=== PATIENT | female | born 1970 | race Caucasian/White ===

== ENCOUNTER 2017-02-14 21:44 | Emergency (ER) | payer SELFPAY, OTHER ==
[2017-02-14] MEDS ORDERED: Meclizine HCl 25 MG TAB ONE (22:35)
== END 2017-02-14 23:48 | disposition home or self-care (01) ==
LOC: ERS 21:44
DX: H81.13 Benign paroxysmal vertigo, bilateral (principal); E11.9 Type 2 diabetes mellitus without complications; I10 Essential (primary) hypertension; G43.909 Migraine, unspecified, not intractable, without status migrainosus; J45.909 Unspecified asthma, uncomplicated; F17.210 Nicotine dependence, cigarettes, uncomplicated
CPT/HCPCS: 93005

== ENCOUNTER 2017-05-25 11:00 | Outpatient (CLI) | payer SELFPAY | END 2017-05-25 11:01 | disposition home or self-care (01) | LOC: BICRAD 11:00 | DX: J18.9 Pneumonia, unspecified organism (principal); I51.7 Cardiomegaly | CPT/HCPCS: 71046 ==

== ENCOUNTER 2017-09-13 20:55 | Emergency (ER) | payer SELFPAY ==
--- NOTE | 2017-09-13 21:17 | RAD ---
PORTABLE CHEST: 09/13/2017 PROVIDED CLINICAL HISTORY: Dyspnea. COMPARISON: 04/04/2016 FINDINGS: The cardiac silhouette appears enlarged. Prominence of the pulmonary vasculature and pulmonary inter stitium. No focal consolidation or pneumothorax apparent. Blunting of each costophrenic angle may r eflect pleural effusions. IMPRESSION: Cardiomegaly and findings suggesting congestive failure with possible bilateral small pleural effusio ns. Followup is recommended. POS: ALPHONSO
[2017-09-13] MEDS ORDERED: predniSONE 20 MG TAB ONE (21:19)
[2017-09-13 22:03] LABS: #Basophils 0.1 thou/uL (0.0-0.2); #Eosinphils 0.3 thou/uL (0.0-0.7); #Lymphocytes 2.7 thou/uL (1.20-3.40); #Monocytes 0.9 thou/uL (0.11-0.59); #Neutrophils 9.1 thou/uL (1.40-6.50); %Basophils 0.4 % (0.0-1.0); %Eosinophils 2.3 % (0.0-10.0); %Lymphocytes 20.7 % (21.0-51.0); %Monocytes 7.1 % (0.0-10.0); %Neutrophils 69.5 % (42.0-75.0); Hemoglobin 13.4 g/dL (12.0-16.0); Mean Corpuscular HGB CONC 31.2 g/dL (32.0-36.0); Mean Corpuscular Hemoglobin 24.5 pg (27.0-31.0); Mean Corpuscular Volume 78.5 fl (81.0-99.0); Mean Platelet Volume 7.5 fL (7.4-10.4); Platelet Count 451 thou/uL (130-400); RBC Distribution Width 17.3 % (11.5-14.5); Red Blood Cell (RBC) Count 5.49 mill/uL (4.20-5.40); White Blood Cell (WBC) Count 13.1 thou/uL (4.8-10.8)
[2017-09-13 22:19] LABS: ALT (SGPT) 20 U/L (8-55); AST (SGOT) 16 U/L (5-34); Albumin 3.8 g/dL (3.5-5.0); Alkaline Phosphatase 153 U/L (40-150); Anion Gap 14 mmol/L (10-20); BUN (Urea Nitrogen) 13 mg/dL (7.0-18.7); Bilirubin, Total 0.4 mg/dL (0.2-1.2); Calc. Creatinine Clearance 0 mL/min (70-130); Calcium 9.6 mg/dL (7.8-10.44); Carbon Dioxide 28 mmol/L (22-29); Chloride 101 mmol/L (98-107); Estimated GFR-MDRD 70; Globulin 3.6 g/dL (2.4-3.5); Glucose 157 mg/dL (70-105); Protein, Total 7.4 g/dL (6.0-8.3); Sodium 139 mmol/L (136-145)
[2017-09-13 22:23] LABS: CKMB 2.3 ng/mL (0-6.6)
[2017-09-13] MEDS ORDERED: Albuterol Sulfate 2.5 mg/3 ml Neb ONE (22:33)
== END 2017-09-13 22:48 | disposition home or self-care (01) ==
LOC: ERS 20:55
DX: J44.1 Chronic obstructive pulmonary disease with (acute) exacerbation (principal); E11.9 Type 2 diabetes mellitus without complications; I10 Essential (primary) hypertension; F17.210 Nicotine dependence, cigarettes, uncomplicated; Z79.84 Long term (current) use of oral hypoglycemic drugs; Z79.899 Other long term (current) drug therapy
CPT/HCPCS: 71045; 80053; 82553; 83880; 84484; 85025; 93005; 94640; J7506; J7611; J7620

== ENCOUNTER 2017-10-09 22:48 | Emergency (ER) | payer SELFPAY ==
[2017-10-09] MEDS ORDERED: methylPREDNISolone Sod Succ/PF 125 MG/2 ML VIAL ONE (23:06)
[2017-10-09 23:21] LABS: #Basophils 0.1 thou/uL (0.0-0.2); #Eosinphils 0.3 thou/uL (0.0-0.7); #Lymphocytes 2.9 thou/uL (1.20-3.40); #Neutrophils 6.9 thou/uL (1.40-6.50); %Basophils 0.8 % (0.0-1.0); %Eosinophils 2.8 % (0.0-10.0); %Lymphocytes 26.2 % (21.0-51.0); %Monocytes 8.6 % (0.0-10.0); %Neutrophils 61.6 % (42.0-75.0); Hemoglobin 14.2 g/dL (12.0-16.0); Mean Corpuscular Hemoglobin 24.7 pg (27.0-31.0); Mean Platelet Volume 8.4 fL (7.4-10.4); Platelet Count 297 thou/uL (130-400); RBC Distribution Width 18.3 % (11.5-14.5); Red Blood Cell (RBC) Count 5.74 mill/uL (4.20-5.40); White Blood Cell (WBC) Count 11.2 thou/uL (4.8-10.8)
[2017-10-09] MEDS ORDERED: Amlodipine 5 MG TAB ONE (23:26)
[2017-10-09] MEDS ORDERED: Furosemide 40 MG TAB ONE (23:26)
[2017-10-09 23:41] LABS: Anion Gap 15 mmol/L (10-20); BUN (Urea Nitrogen) 14 mg/dL (7.0-18.7); Calc. Creatinine Clearance 0 mL/min (70-130); Calcium 9.6 mg/dL (7.8-10.44); Carbon Dioxide 28 mmol/L (22-29); Chloride 101 mmol/L (98-107); Estimated GFR-MDRD 74; Glucose 133 mg/dL (70-105); Potassium 4.2 mmol/L (3.5-5.1); Sodium 140 mmol/L (136-145)
--- NOTE | 2017-10-09 23:41 | RAD ---
RADIOGRAPH CHEST 1 VIEW: Date: 10/09/17 Time: 11:14 p.m. HISTORY: 47-year-old female with dyspnea and COPD. COMPARISON: 09/13/17 FINDINGS: Again demonstrated is the indistinctness of the right cardiac border, unchanged since 09/13/17, but ne w compared to 04/04/16. There is mild cardiomegaly. No pulmonary vascular engorgement or pulmonary e kim. Upper lobes are clear. No pneumothorax. No interval change overall compared to 09/13/17. Minimal blunting of the lateral costophrenic angles bilaterally. IMPRESSION: 1. Infiltrate versus atelectasis in the right middle lobe, unchanged since 09/13/17. 2. Mild cardiomegaly without pulmonary edema. 3. Questionable small bilateral pleural effusions versus pleural thickening. 4. No major interval change detected overall compared to 09/13/17. JANNA [] POS: ALPHONSO
[2017-10-09] MEDS ORDERED: Albuterol Sulfate 2.5 mg/3 ml Neb ONE (23:54)
== END 2017-10-10 00:19 | disposition home or self-care (01) ==
LOC: ERS 22:48
DX: J44.1 Chronic obstructive pulmonary disease with (acute) exacerbation (principal); E11.9 Type 2 diabetes mellitus without complications; I10 Essential (primary) hypertension; F17.210 Nicotine dependence, cigarettes, uncomplicated; Z79.84 Long term (current) use of oral hypoglycemic drugs; Z79.899 Other long term (current) drug therapy; Z71.6 Tobacco abuse counseling
CPT/HCPCS: 71045; 80048; 85025; 93005; 94640; 96374; 99406; J2930; J7611; J7620

== ENCOUNTER 2020-08-09 23:44 | Emergency (ER) | payer MEDICAID ==
[2020-08-10] MEDS ORDERED: Magnesium 2 GM/50 ML BAG (IN WATER) ONE (00:09)
[2020-08-10] MEDS ORDERED: methylPREDNISolone Sod Succ/PF 125 MG/2 ML VIAL ONE (00:09)
[2020-08-10 00:16] LABS: #Monocytes 0.7 thou/uL (0.11-0.59); #Neutrophils 12.3 thou/uL (1.40-6.50); %Basophils 0.1 % (0.0-1.0); %Eosinophils 0.2 % (0.0-10.0); %Monocytes 5.2 % (0.0-10.0); %Neutrophils 87.4 % (42.0-75.0); Hemoglobin 15.3 g/dL (12.0-16.0); Mean Corpuscular HGB CONC 31.8 g/dL (32.0-36.0); Mean Corpuscular Hemoglobin 30.3 pg (27.0-31.0); Mean Corpuscular Volume 95.1 fL (78.0-98.0); Mean Platelet Volume 8.6 fL (7.4-10.4); Platelet Count 351 thou/uL (130-400); RBC Distribution Width 14.2 % (11.5-14.5); Red Blood Cell (RBC) Count 5.06 mill/uL (4.20-5.40); White Blood Cell (WBC) Count 14.1 thou/uL (4.8-10.8)
[2020-08-10 00:26] LABS: Actual Bicarbonate (HCO3v) 25 mEq/L (22-28); Analyzer IN Cardio ER; Base Excess 0.1 mEq/L (-2.0 to +3.0); Calcium, Ionized (venous) 1.15 mmol/L (1.16-1.32); Chloride (VBG) 100 mmol/L (98-106); Hemoglobin (Hb) 16.6 g/dL (11.7-16.0); Potassium (VBG) 4.73 mmol/L (3.70-5.30); Sodium 135.3 mmol/L (133-146); pH (venous) 7.41 (7.32-7.43)
[2020-08-10 00:39] LABS: ALT (SGPT) 42 U/L (8-55); AST (SGOT) 27 U/L (5-34); Albumin 4.2 g/dL (3.5-5.0); Alkaline Phosphatase 146 U/L (40-110); Anion Gap 18 mmol/L (10-20); BUN (Urea Nitrogen) 25 mg/dL (9.8-20.1); Bilirubin, Total 0.4 mg/dL (0.2-1.2); Calc. Creatinine Clearance 0 mL/min (70-130); Carbon Dioxide 25 mmol/L (22-29); Chloride 97 mmol/L (98-107); Globulin 3.7 g/dL (2.4-3.5); Glucose 474 mg/dL (70-105); Potassium 4.9 mmol/L (3.5-5.1); Protein, Total 7.9 g/dL (6.0-8.3); Sodium 135 mmol/L (136-145)
[2020-08-10] MEDS ORDERED: Amlodipine 5 MG TAB ONE (01:59)
== END 2020-08-10 02:34 | disposition home or self-care (01) ==
LOC: ERS 23:44
DX: J44.1 Chronic obstructive pulmonary disease with (acute) exacerbation (principal); E11.9 Type 2 diabetes mellitus without complications; I10 Essential (primary) hypertension; F17.210 Nicotine dependence, cigarettes, uncomplicated; Z79.84 Long term (current) use of oral hypoglycemic drugs; Z79.899 Other long term (current) drug therapy
CPT/HCPCS: 36415; 71045; 80053; 82805; 83880; 84484; 85025; 93005; 94640; 94760; 96365; 96375; J2930; J3475; J7620

== ENCOUNTER 2020-08-17 18:09 | Inpatient (IN) | payer MEDICAID ==
[2020-08-17 19:40] LABS: #Basophils 0.1 thou/uL (0.0-0.2); #Eosinphils 0.1 thou/uL (0.0-0.7); #Lymphocytes 2.5 thou/uL (1.20-3.40); #Monocytes 1.1 thou/uL (0.11-0.59); %Basophils 0.5 % (0.0-1.0); %Eosinophils 0.7 % (0.0-10.0); %Lymphocytes 13.3 % (21.0-51.0); %Monocytes 5.9 % (0.0-10.0); %Neutrophils 79.6 % (42.0-75.0); Hemoglobin 16.6 g/dL (12.0-16.0); Mean Corpuscular HGB CONC 32.6 g/dL (32.0-36.0); Mean Corpuscular Hemoglobin 30.7 pg (27.0-31.0); Mean Corpuscular Volume 94.2 fL (78.0-98.0); Platelet Count 274 thou/uL (130-400); Red Blood Cell (RBC) Count 5.42 mill/uL (4.20-5.40); White Blood Cell (WBC) Count 18.8 thou/uL (4.8-10.8)
[2020-08-17] MEDS ORDERED: Albuterol Sulfate 2.5 mg/3 ml Neb ONE (19:53)
[2020-08-17 20:02] LABS: ALT (SGPT) 41 U/L (8-55); AST (SGOT) 17 U/L (5-34); Albumin 3.7 g/dL (3.5-5.0); Alkaline Phosphatase 135 U/L (40-110); Anion Gap 16 mmol/L (10-20); BUN (Urea Nitrogen) 15 mg/dL (9.8-20.1); Bilirubin, Total 0.6 mg/dL (0.2-1.2); CK (CPK) 50 U/L (29-168); Calc. Creatinine Clearance 0 mL/min (70-130); Calcium 9.6 mg/dL (7.8-10.44); Carbon Dioxide 27 mmol/L (22-29); Chloride 97 mmol/L (98-107); Globulin 3.1 g/dL (2.4-3.5); Glucose 328 mg/dL (70-105); Potassium 4.6 mmol/L (3.5-5.1); Protein, Total 6.8 g/dL (6.0-8.3); Sodium 135 mmol/L (136-145)
[2020-08-17 20:23] LABS: CKMB 1.8 ng/mL (0-6.6)
[2020-08-17] MEDS ORDERED: Albuterol 200 PUFF (6.7GM INHALER) ONE (20:39)
[2020-08-17] MEDS ORDERED: Furosemide 40 MG/4 ML VIAL ONE (21:09)
[2020-08-17 23:18] LABS: SARS-CoV-2 NAA Rapid Test Not Detected (NotDetected)
[2020-08-18] MEDS ORDERED: Ondansetron PF 4 MG/2 ML Vial IVP PRN (00:07)
[2020-08-18] MEDS ORDERED: Ondansetron ODT 4 MG TAB PO PRN (00:07)
[2020-08-18] MEDS: Acetaminophen 325 MG TAB PO PRN ×3 (00:24→16:44)
[2020-08-18 00:49] VITALS: BMI 35.9
[2020-08-18 00:52] LABS: Troponin I 0.034 ng/mL (< 0.028)
[2020-08-18] MEDS ORDERED: Dextrose 5% in Water 1,000 ML IV PRN (02:54)
[2020-08-18] MEDS ORDERED: Dextrose 50% Abboject 50 ML SYRINGE SLOW IVP PRN (02:54)
[2020-08-18 05:46] LABS: ALT (SGPT) 36 U/L (8-55); AST (SGOT) 15 U/L (5-34); Albumin 3.6 g/dL (3.5-5.0); Alkaline Phosphatase 138 U/L (40-110); Anion Gap 15 mmol/L (10-20); BUN (Urea Nitrogen) 15 mg/dL (9.8-20.1); Bilirubin, Total 0.6 mg/dL (0.2-1.2); Calc. Creatinine Clearance 104 mL/min (70-130); Calcium 9.9 mg/dL (7.8-10.44); Carbon Dioxide 28 mmol/L (22-29); Chloride 94 mmol/L (98-107); Globulin 3.5 g/dL (2.4-3.5); Glucose 403 mg/dL (70-105); Potassium 4.1 mmol/L (3.5-5.1); Protein, Total 7.1 g/dL (6.0-8.3); Sodium 133 mmol/L (136-145)
[2020-08-18] MEDS ORDERED: Furosemide 40 MG/4 ML VIAL SLOW IVP SCH (06:00)
[2020-08-18] MEDS: Furosemide 40 MG/4 ML VIAL SLOW IVP SCH (06:19)
[2020-08-18] MEDS: HumaLOG 300 UNITS/3 ML VIAL SC PRN ×4 (06:19→22:04)
[2020-08-18 06:53] LABS: Hemoglobin 15.9 g/dL (12.0-16.0); Mean Corpuscular HGB CONC 31.4 g/dL (32.0-36.0); Mean Corpuscular Hemoglobin 29.7 pg (27.0-31.0); Mean Corpuscular Volume 94.4 fL (78.0-98.0); Mean Platelet Volume 8.2 fL (7.4-10.4); Platelet Count 274 thou/uL (130-400); RBC Distribution Width 14.1 % (11.5-14.5); Red Blood Cell (RBC) Count 5.38 mill/uL (4.20-5.40); White Blood Cell (WBC) Count 20.3 thou/uL (4.8-10.8)
[2020-08-18 06:56] LABS: Band 8 % (5-11); Eosinophils 1 % (0-10); Lymphocytes 7 % (21-51); MDiff Complete? YES; Monocytes 4 % (0-10); Neutrophil 80 % (42-75)
[2020-08-18] MEDS: Gemfibrozil 600 MG TAB PO SCH ×2 (07:58→16:38)
[2020-08-18] MEDS: metFORMIN 500 MG TAB PO SCH ×2 (07:58→16:38)
[2020-08-18] MEDS: Enoxaparin Sodium 40 MG/0.4 ML SYRINGE SC SCH (07:59)
[2020-08-18] MEDS: Amlodipine 10 MG TAB PO SCH (07:59)
[2020-08-18] MEDS ORDERED: METFORMIN HCL 1000 MG PO SCH (08:00)
[2020-08-18] MEDS ORDERED: methylPREDNISolone Sod Succ 40 MG VIAL IVP SCH (09:00)
[2020-08-18] MEDS ORDERED: HumaLOG 300 UNITS/3 ML VIAL SC SCH (11:15)
[2020-08-18] MEDS: HumaLOG 300 UNITS/3 ML VIAL SC SCH ×2 (16:39→20:46)
[2020-08-18] MEDS ORDERED: Cepastat Lozenges 1 LOZ PO PRN (23:15)
[2020-08-19] MEDS: Furosemide 40 MG/4 ML VIAL SLOW IVP SCH (06:12)
[2020-08-19] MEDS: HumaLOG 300 UNITS/3 ML VIAL SC PRN ×2 (06:15→11:44)
[2020-08-19] MEDS ORDERED: predniSONE 50 MG TAB PO SCH (08:00)
[2020-08-19 08:58] LABS: Anion Gap 17 mmol/L (10-20); BUN (Urea Nitrogen) 24 mg/dL (9.8-20.1); Calc. Creatinine Clearance 106 mL/min (70-130); Calcium 9.9 mg/dL (7.8-10.44); Carbon Dioxide 29 mmol/L (22-29); Chloride 92 mmol/L (98-107); Glucose 280 mg/dL (70-105); Potassium 3.8 mmol/L (3.5-5.1); Sodium 134 mmol/L (136-145)
[2020-08-19 09:00] LABS: #Basophils 0.1 thou/uL (0.0-0.2); #Eosinphils 0.1 thou/uL (0.0-0.7); #Lymphocytes 3.5 thou/uL (1.20-3.40); #Monocytes 1.6 thou/uL (0.11-0.59); %Basophils 0.3 % (0.0-1.0); %Eosinophils 0.6 % (0.0-10.0); %Lymphocytes 15.2 % (21.0-51.0); %Monocytes 6.7 % (0.0-10.0); %Neutrophils 77.2 % (42.0-75.0); Hemoglobin 16.6 g/dL (12.0-16.0); Mean Corpuscular HGB CONC 31.6 g/dL (32.0-36.0); Mean Corpuscular Hemoglobin 29.6 pg (27.0-31.0); Mean Corpuscular Volume 93.7 fL (78.0-98.0); Mean Platelet Volume 8.5 fL (7.4-10.4); Platelet Count 298 thou/uL (130-400); White Blood Cell (WBC) Count 23.3 thou/uL (4.8-10.8)
[2020-08-19] MEDS: metFORMIN 500 MG TAB PO SCH (09:04)
[2020-08-19] MEDS: Amlodipine 10 MG TAB PO SCH (09:04)
[2020-08-19] MEDS: Gemfibrozil 600 MG TAB PO SCH (09:05)
[2020-08-19] MEDS: Enoxaparin Sodium 40 MG/0.4 ML SYRINGE SC SCH (09:06)
[2020-08-19] MEDS: HumaLOG 300 UNITS/3 ML VIAL SC SCH (09:08)
[2020-08-19 11:38] VITALS: BP 129/69; TEMP 98.3
== END 2020-08-19 12:14 | disposition home or self-care (01) | DRG 291 ==
LOC: ERS 18:09 → 2SW 22:12 → OBSVTOIN 22:12
PROVIDERS: ADMIT Student in an Organized Health Care Education/Training Program; ATTEND Internal Medicine
DX: I11.0 Hypertensive heart disease with heart failure (principal); J96.21 Acute and chronic respiratory failure with hypoxia; J44.1 Chronic obstructive pulmonary disease with (acute) exacerbation; E11.9 Type 2 diabetes mellitus without complications; I50.33 Acute on chronic diastolic (congestive) heart failure; E66.9 Obesity, unspecified; Z20.822 Contact with and (suspected) exposure to COVID-19; F17.210 Nicotine dependence, cigarettes, uncomplicated; Z88.8 Allergy status to other drugs, medicaments and biological substances; Z79.84 Long term (current) use of oral hypoglycemic drugs; Z68.35 Body mass index [BMI] 35.0-35.9, adult
CPT/HCPCS: 0240U; 36415; 36416; 71045; 80048; 80053; 82550; 82553; 83880; 84484; 85025; 85379; 93005; 93306; 94760; 96372; 96374; 96375; G0378; J1650; J1815; J1940; J1956; J2920; J7512; J7611; J7620

== ENCOUNTER 2020-10-13 17:59 | Inpatient (IN) | payer MEDICAID ==
[2020-10-13 18:46] LABS: Hemoglobin 15.3 g/dL (12.0-16.0); Mean Corpuscular HGB CONC 32.7 g/dL (32.0-36.0); Mean Corpuscular Hemoglobin 31.5 pg (27.0-31.0); Mean Corpuscular Volume 96.2 fL (78.0-98.0); Mean Platelet Volume 8.1 fL (7.4-10.4); Platelet Count 313 thou/uL (130-400); RBC Distribution Width 15.1 % (11.5-14.5); Red Blood Cell (RBC) Count 4.85 mill/uL (4.20-5.40); White Blood Cell (WBC) Count 19.2 thou/uL (4.8-10.8)
[2020-10-13 18:53] LABS: INR-International Normal Ratio 0.9; PTT 29.3 sec (22.9-36.1); Prothrombin Time 12.3 sec (12.0-14.7)
[2020-10-13] MEDS ORDERED: Lidocaine 1% (PF) 30 ML VIAL ONE (18:57)
[2020-10-13] MEDS ORDERED: cefTRIAXone\\ROCEPHIN 1 GM VIAL ONE (18:57)
[2020-10-13 18:59] LABS: ALT (SGPT) 30 U/L (8-55); AST (SGOT) 18 U/L (5-34); Alkaline Phosphatase 153 U/L (40-110); Anion Gap 14 mmol/L (10-20); BUN (Urea Nitrogen) 11 mg/dL (9.8-20.1); Bilirubin, Total 0.5 mg/dL (0.2-1.2); Calc. Creatinine Clearance 0 mL/min (70-130); Calcium 9.7 mg/dL (7.8-10.44); Carbon Dioxide 25 mmol/L (22-29); Chloride 101 mmol/L (98-107); Globulin 3.7 g/dL (2.4-3.5); Glucose 289 mg/dL (70-105); Potassium 4.2 mmol/L (3.5-5.1); Protein, Total 7.7 g/dL (6.0-8.3); Sodium 136 mmol/L (136-145)
[2020-10-13] MEDS ORDERED: Midazolam HCl 2 mg/2 ml Vial ONE (18:59)
[2020-10-13 19:13] LABS: Band 9 % (5-11); Lymphocytes 6 % (21-51); MDiff Complete? YES; Monocytes 9 % (0-10); Neutrophil 75 % (42-75); Platelet Morphology Comment Appears Adequate; Polychromasia SLIGHT = 2-3 cells (100X) (0-2/hpf); Reactive Lymphocytes 1 % (0-10)
[2020-10-13] MEDS ORDERED: Vancomycin 1 GM/200 ML BAG ONE (20:00)
[2020-10-13] MEDS ORDERED: Morphine 4 MG/ML VIAL ONE (20:17)
[2020-10-13] MEDS ORDERED: Sodium Chloride 0.9% 1,000 ML IV SCH (23:45)
[2020-10-14] MEDS: Morphine 2 MG/ML VIAL SLOW IVP PRN ×4 (00:29→08:41)
[2020-10-14 00:37] VITALS: BMI 37.7
[2020-10-14] MEDS ORDERED: Non-Formulary Item 1 EACH (Albuterol Sulfate [Ventolin Hfa] 8 GM Hfa.Aer.Ad) INH PRN (02:44)
[2020-10-14] MEDS ORDERED: Albuterol Sulfate 2.5 mg/3 ml Neb NEB PRN (02:44)
[2020-10-14] MEDS ORDERED: Dextrose 5% in Water 1,000 ML IV PRN (02:46)
[2020-10-14] MEDS ORDERED: HumaLOG 300 UNITS/3 ML VIAL SC PRN ×2 (02:46→11:31)
[2020-10-14] MEDS ORDERED: Dextrose 50% Abboject 50 ML SYRINGE SLOW IVP PRN (02:46)
[2020-10-14] MEDS: Sodium Chloride 0.9% 1,000 ML IV SCH ×2 (02:59→13:44)
[2020-10-14] MEDS: Nicotine 14 MG PATCH TD SCH (03:00)
[2020-10-14 07:40] LABS: Glucose 239 mg/dL (70-105)
[2020-10-14] MEDS ORDERED: Vancomycin HCl 1.5 GM in Sodium Chloride 0.9% 250 ML 300 ML IVPB SCH (08:00)
[2020-10-14] MEDS: cefTRIAXone\\ROCEPHIN 1 GM in Sodium Chloride 0.9% 100 ML IVPB SCH (08:40)
[2020-10-14] MEDS: metFORMIN 500 MG TAB PO SCH ×2 (08:44→17:55)
[2020-10-14] MEDS: Gemfibrozil 600 MG TAB PO SCH ×2 (08:47→17:55)
[2020-10-14] MEDS ORDERED: Furosemide 20 MG TAB PO SCH (09:00)
[2020-10-14 11:00] LABS: SARS-CoV-2 PCR by NAA Not Detected (NotDetected)
[2020-10-14] MEDS ORDERED: Sodium Chloride 0.9% 1,000 ML IV SCH ×2 (11:32→11:35)
[2020-10-14] MEDS: Amlodipine 10 MG TAB PO SCH (12:17)
[2020-10-14 12:22] LABS: Glucose 276 mg/dL (70-105)
[2020-10-14] MEDS: Vancomycin HCl 1.5 GM in Sodium Chloride 0.9% 250 ML 300 ML IVPB SCH (13:44)
[2020-10-14] MEDS ORDERED: Lantus 1000 UNITS/10 ML VIAL SC SCH ×3 (15:45→21:00)
[2020-10-14] MEDS: traMADol HCl 50 MG TAB PO PRN (17:58)
[2020-10-14] MEDS: Acetaminophen 325 MG TAB PO PRN (21:58)
[2020-10-15] MEDS: Nicotine 14 MG PATCH TD SCH (02:08)
[2020-10-15] MEDS: traMADol HCl 50 MG TAB PO PRN ×2 (02:08→07:43)
[2020-10-15] MEDS: Vancomycin HCl 1.5 GM in Sodium Chloride 0.9% 250 ML 300 ML IVPB SCH ×2 (02:09→14:04)
[2020-10-15] MEDS: Acetaminophen 325 MG TAB PO PRN (02:09)
[2020-10-15 06:02] LABS: #Eosinphils 0.4 thou/uL (0.0-0.7); #Lymphocytes 2.4 thou/uL (1.20-3.40); #Neutrophils 8.2 thou/uL (1.40-6.50); %Basophils 0.1 % (0.0-1.0); %Eosinophils 3.1 % (0.0-10.0); %Lymphocytes 19.8 % (21.0-51.0); %Monocytes 8.6 % (0.0-10.0); %Neutrophils 68.4 % (42.0-75.0); Hemoglobin 13.5 g/dL (12.0-16.0); Mean Corpuscular HGB CONC 33.4 g/dL (32.0-36.0); Mean Corpuscular Hemoglobin 32.7 pg (27.0-31.0); Mean Corpuscular Volume 97.8 fL (78.0-98.0); Mean Platelet Volume 7.7 fL (7.4-10.4); Platelet Count 292 thou/uL (130-400); RBC Distribution Width 14.9 % (11.5-14.5); Red Blood Cell (RBC) Count 4.13 mill/uL (4.20-5.40)
[2020-10-15 06:26] LABS: Anion Gap 12 mmol/L (10-20); BUN (Urea Nitrogen) 10 mg/dL (9.8-20.1); Calc. Creatinine Clearance 159 mL/min (70-130); Calcium 9.1 mg/dL (7.8-10.44); Carbon Dioxide 25 mmol/L (22-29); Chloride 101 mmol/L (98-107); Glucose 189 mg/dL (70-105); Magnesium 1.7 mg/dL (1.6-2.6); Potassium 4.1 mmol/L (3.5-5.1); Sodium 134 mmol/L (136-145)
[2020-10-15] MEDS: Gemfibrozil 600 MG TAB PO SCH ×2 (07:41→16:43)
[2020-10-15] MEDS: Amlodipine 10 MG TAB PO SCH (07:42)
[2020-10-15] MEDS: Furosemide 20 MG TAB PO SCH (07:42)
[2020-10-15] MEDS: cefTRIAXone\\ROCEPHIN 1 GM in Sodium Chloride 0.9% 100 ML IVPB SCH (07:42)
[2020-10-15] MEDS: metFORMIN 500 MG TAB PO SCH ×2 (07:42→16:43)
[2020-10-15] MEDS ORDERED: Magnesium Sulfate 2 GM in Sodium Chloride 0.9% 100 ML IVPB SCH (09:00)
[2020-10-15] MEDS ORDERED: Magnesium 2 GM/50 ML 2 GM in Premix Bag 1 BAG IVPB SCH (09:15)
[2020-10-15] MEDS ORDERED: Morphine 2 MG/ML VIAL SLOW IVP PRN (11:41)
[2020-10-15] MEDS ORDERED: HYDROcodone/Acetaminophen 5/325 mg Tablet PO PRN (11:41)
[2020-10-15 13:11] LABS: Hemoglobin A1c 10.5 % (4.0-6.0)
[2020-10-15 13:28] LABS: Vancomycin, Trough 9.6 ug/mL
[2020-10-15] MEDS: Ketorolac Tromethamine 30 MG/ML VIAL IVP SCH ×2 (13:54→18:14)
[2020-10-15] MEDS ORDERED: Ondansetron ODT 4 MG TAB PO PRN (14:07)
[2020-10-15] MEDS ORDERED: Ondansetron PF 4 MG/2 ML Vial IVP PRN (14:07)
[2020-10-15] MEDS: Vancomycin 1 GM in Premix Bag 1 BAG IVPB SCH ×2 (14:08→23:20)
[2020-10-15] MEDS ORDERED: Lantus 1000 UNITS/10 ML VIAL SC SCH (21:00)
[2020-10-15] MEDS: Ibuprofen 200 MG TAB PO PRN (21:07)
[2020-10-16] MEDS: Ketorolac Tromethamine 30 MG/ML VIAL IVP SCH (01:19)
[2020-10-16] MEDS: Nicotine 14 MG PATCH TD SCH (03:31)
[2020-10-16 06:13] LABS: #Eosinphils 0.3 thou/uL (0.0-0.7); #Monocytes 0.9 thou/uL (0.11-0.59); #Neutrophils 5.4 thou/uL (1.40-6.50); %Basophils 0.3 % (0.0-1.0); %Eosinophils 3.9 % (0.0-10.0); %Lymphocytes 23.3 % (21.0-51.0); %Monocytes 9.9 % (0.0-10.0); %Neutrophils 62.6 % (42.0-75.0); Hemoglobin 13.3 g/dL (12.0-16.0); Mean Corpuscular HGB CONC 33.3 g/dL (32.0-36.0); Mean Corpuscular Hemoglobin 32.7 pg (27.0-31.0); Mean Corpuscular Volume 98.2 fL (78.0-98.0); Mean Platelet Volume 7.7 fL (7.4-10.4); Platelet Count 311 thou/uL (130-400); RBC Distribution Width 14.5 % (11.5-14.5); Red Blood Cell (RBC) Count 4.07 mill/uL (4.20-5.40); White Blood Cell (WBC) Count 8.6 thou/uL (4.8-10.8)
[2020-10-16] MEDS: Vancomycin 1 GM in Premix Bag 1 BAG IVPB SCH (06:37)
[2020-10-16] MEDS: Gemfibrozil 600 MG TAB PO SCH ×2 (06:38→16:56)
[2020-10-16] MEDS: HumaLOG 300 UNITS/3 ML VIAL SC PRN ×4 (06:43→21:05)
[2020-10-16 07:07] LABS: Anion Gap 15 mmol/L (10-20); BUN (Urea Nitrogen) 13 mg/dL (9.8-20.1); Calc. Creatinine Clearance 139 mL/min (70-130); Calcium 9.4 mg/dL (7.8-10.44); Carbon Dioxide 31 mmol/L (22-29); Chloride 98 mmol/L (98-107); Glucose 201 mg/dL (70-105); Sodium 140 mmol/L (136-145)
[2020-10-16] MEDS: metFORMIN 500 MG TAB PO SCH ×2 (08:07→16:56)
[2020-10-16] MEDS: Amlodipine 10 MG TAB PO SCH (08:09)
[2020-10-16] MEDS: cefTRIAXone\\ROCEPHIN 1 GM in Sodium Chloride 0.9% 100 ML IVPB SCH (08:09)
[2020-10-16] MEDS: Furosemide 20 MG TAB PO SCH (08:10)
[2020-10-16] MEDS: Ibuprofen 200 MG TAB PO PRN (08:18)
[2020-10-16] MEDS: Clindamycin 150 MG CAP PO SCH ×3 (11:38→23:26)
[2020-10-16] MEDS ORDERED: Lantus 1000 UNITS/10 ML VIAL SC SCH (21:00)
[2020-10-16] MEDS: traMADol HCl 50 MG TAB PO PRN (21:11)
[2020-10-17] MEDS: Nicotine 14 MG PATCH TD SCH (03:57)
[2020-10-17] MEDS: Clindamycin 150 MG CAP PO SCH ×2 (04:00→11:09)
[2020-10-17] MEDS: Acetaminophen 325 MG TAB PO PRN (04:02)
[2020-10-17] MEDS: Gemfibrozil 600 MG TAB PO SCH (06:31)
[2020-10-17] MEDS: metFORMIN 500 MG TAB PO SCH (08:24)
[2020-10-17] MEDS: Amlodipine 10 MG TAB PO SCH (08:24)
[2020-10-17] MEDS: Furosemide 20 MG TAB PO SCH (08:25)
[2020-10-17 08:31] LABS: #Basophils 0.1 thou/uL (0.0-0.2); #Eosinphils 0.4 thou/uL (0.0-0.7); #Lymphocytes 2.4 thou/uL (1.20-3.40); #Monocytes 0.8 thou/uL (0.11-0.59); #Neutrophils 4.8 thou/uL (1.40-6.50); %Eosinophils 4.8 % (0.0-10.0); %Lymphocytes 28.1 % (21.0-51.0); %Monocytes 9.4 % (0.0-10.0); %Neutrophils 56.7 % (42.0-75.0); Mean Corpuscular HGB CONC 31.5 g/dL (32.0-36.0); Mean Corpuscular Hemoglobin 31.3 pg (27.0-31.0); Mean Corpuscular Volume 99.2 fL (78.0-98.0); Mean Platelet Volume 7.5 fL (7.4-10.4); Platelet Count 378 thou/uL (130-400); RBC Distribution Width 14.5 % (11.5-14.5); Red Blood Cell (RBC) Count 4.48 mill/uL (4.20-5.40); White Blood Cell (WBC) Count 8.4 thou/uL (4.8-10.8)
[2020-10-17 08:46] LABS: Anion Gap 18 mmol/L (10-20); BUN (Urea Nitrogen) 13 mg/dL (9.8-20.1); Calc. Creatinine Clearance 145 mL/min (70-130); Calcium 9.7 mg/dL (7.8-10.44); Carbon Dioxide 27 mmol/L (22-29); Chloride 99 mmol/L (98-107); Glucose 130 mg/dL (70-105); Potassium 4.1 mmol/L (3.5-5.1); Sodium 140 mmol/L (136-145)
[2020-10-17] MEDS: traMADol HCl 50 MG TAB PO PRN (11:07)
[2020-10-17 12:25] VITALS: BP 142/84; TEMP 98.1
== END 2020-10-17 13:47 | disposition home or self-care (01) | DRG 872 ==
LOC: ERS 17:59 → T4-B 22:02 → OBSVTOIN 10-14 11:30
PROVIDERS: ADMIT Student in an Organized Health Care Education/Training Program; ATTEND Internal Medicine
PROC: 0X940ZZ Drainage of Right Axilla, Open Approach (ICD-10-PCS; principal; 2020-10-14)
PROC: 8E0ZXY6 Isolation (ICD-10-PCS; 2020-10-15)
DX: A41.02 Sepsis due to Methicillin resistant Staphylococcus aureus (principal); L02.411 Cutaneous abscess of right axilla; L03.111 Cellulitis of right axilla; J96.11 Chronic respiratory failure with hypoxia; Z20.822 Contact with and (suspected) exposure to COVID-19; E83.42 Hypomagnesemia; J44.9 Chronic obstructive pulmonary disease, unspecified; E11.9 Type 2 diabetes mellitus without complications; F17.210 Nicotine dependence, cigarettes, uncomplicated; E78.5 Hyperlipidemia, unspecified; E66.9 Obesity, unspecified; Z68.37 Body mass index [BMI] 37.0-37.9, adult; Z88.8 Allergy status to other drugs, medicaments and biological substances; Z99.81 Dependence on supplemental oxygen; Z79.899 Other long term (current) drug therapy; Z79.4 Long term (current) use of insulin; Z83.6 Family history of other diseases of the respiratory system; Z80.9 Family history of malignant neoplasm, unspecified
CPT/HCPCS: 36415; 36416; 80048; 80053; 80202; 82947; 83036; 83605; 83735; 85025; 85610; 85730; 87040; 87070; 87077; 87186; 87205; 93005; 96376; G0378; J0696; J1815; J1885; J2001; J2250; J2270; J2405; J3370; J3475; J3490; J7050; U0003; U0005

== ENCOUNTER 2020-12-29 10:03 | Emergency (ER) | payer MEDICAID, OTHER ==
[2020-12-29] MEDS ORDERED: methylPREDNISolone Sod Succ/PF 125 MG/2 ML VIAL ONE (11:25)
[2020-12-29] MEDS ORDERED: Magnesium 2 GM/50 ML BAG (IN WATER) ONE (11:25)
[2020-12-29] MEDS ORDERED: Insulin Regular 300 UNITS/3 ML VIAL ONE ×2 (11:48→11:49)
[2020-12-29 11:54] LABS: #Eosinphils 0.1 thou/uL (0.0-0.7); #Lymphocytes 1.8 thou/uL (1.20-3.40); #Monocytes 0.9 thou/uL (0.11-0.59); #Neutrophils 7.9 thou/uL (1.40-6.50); %Basophils 0.1 % (0.0-1.0); %Eosinophils 1.1 % (0.0-10.0); %Lymphocytes 16.6 % (21.0-51.0); %Monocytes 8.7 % (0.0-10.0); %Neutrophils 73.5 % (42.0-75.0); Hemoglobin 15.8 g/dL (12.0-16.0); Mean Corpuscular HGB CONC 32.9 g/dL (32.0-36.0); Mean Corpuscular Hemoglobin 32.5 pg (27.0-31.0); Mean Corpuscular Volume 98.8 fL (78.0-98.0); Platelet Count 383 thou/uL (130-400); RBC Distribution Width 14.3 % (11.5-14.5); Red Blood Cell (RBC) Count 4.86 mill/uL (4.20-5.40); White Blood Cell (WBC) Count 10.8 thou/uL (4.8-10.8)
[2020-12-29 12:00] LABS: ALT (SGPT) 54 U/L (8-55); AST (SGOT) 28 U/L (5-34); Albumin 3.8 g/dL (3.5-5.0); Alkaline Phosphatase 137 U/L (40-110); Anion Gap 13 mmol/L (10-20); BUN (Urea Nitrogen) 24 mg/dL (9.8-20.1); Bilirubin, Total 0.5 mg/dL (0.2-1.2); Calc. Creatinine Clearance 0 mL/min (70-130); Calcium 9.6 mg/dL (7.8-10.44); Carbon Dioxide 30 mmol/L (22-29); Chloride 97 mmol/L (98-107); Globulin 3.6 g/dL (2.4-3.5); Glucose 376 mg/dL (70-105); Potassium 3.8 mmol/L (3.5-5.1); Protein, Total 7.4 g/dL (6.0-8.3); Sodium 136 mmol/L (136-145)
[2020-12-29] MEDS ORDERED: PROVENTIL INHALER 6.7 G (200 INHALATIONS) ONE ×2 (12:46→12:50)
[2020-12-29] MEDS ORDERED: Albuterol 200 PUFF (6.7GM INHALER) INH SCH (13:30)
[2020-12-29 16:45] LABS: SARS-CoV-2 PCR by NAA Not Detected (NotDetected)
== END 2020-12-29 14:15 | disposition home or self-care (01) ==
LOC: ERS 10:03
DX: J44.1 Chronic obstructive pulmonary disease with (acute) exacerbation (principal); Z20.822 Contact with and (suspected) exposure to COVID-19; E11.65 Type 2 diabetes mellitus with hyperglycemia; I10 Essential (primary) hypertension; F17.210 Nicotine dependence, cigarettes, uncomplicated; Z79.899 Other long term (current) drug therapy
CPT/HCPCS: 36415; 36416; 71046; 80053; 83880; 84484; 85025; 93005; 96365; 96372; J1815; J2930; J3475; U0003; U0005

== ENCOUNTER 2021-02-03 15:04 | Inpatient (IN) | payer OTHER ==
[2021-02-03 15:55] LABS: #Basophils 0.1 thou/uL (0.0-0.2); #Eosinphils 0.1 thou/uL (0.0-0.7); #Lymphocytes 1.9 thou/uL (1.20-3.40); #Monocytes 0.8 thou/uL (0.11-0.59); #Neutrophils 7.7 thou/uL (1.40-6.50); %Basophils 0.7 % (0.0-1.0); %Eosinophils 0.7 % (0.0-10.0); %Lymphocytes 17.7 % (21.0-51.0); %Monocytes 7.5 % (0.0-10.0); %Neutrophils 73.3 % (42.0-75.0); Hemoglobin 14.6 g/dL (12.0-16.0); Mean Corpuscular HGB CONC 31.8 g/dL (32.0-36.0); Mean Corpuscular Hemoglobin 30.9 pg (27.0-31.0); Mean Corpuscular Volume 97.2 fL (78.0-98.0); Mean Platelet Volume 8.4 fL (7.4-10.4); Platelet Count 351 thou/uL (130-400); RBC Distribution Width 14.4 % (11.5-14.5); Red Blood Cell (RBC) Count 4.71 mill/uL (4.20-5.40); White Blood Cell (WBC) Count 10.4 thou/uL (4.8-10.8)
[2021-02-03 16:18] LABS: ALT (SGPT) 41 U/L (8-55); AST (SGOT) 22 U/L (5-34); Albumin 3.7 g/dL (3.5-5.0); Alkaline Phosphatase 175 U/L (40-110); Anion Gap 14 mmol/L (10-20); BUN (Urea Nitrogen) 17 mg/dL (9.8-20.1); Bilirubin, Total 0.7 mg/dL (0.2-1.2); Calc. Creatinine Clearance 0 mL/min (70-130); Calcium 9.8 mg/dL (7.8-10.44); Carbon Dioxide 32 mmol/L (22-29); Chloride 99 mmol/L (98-107); Globulin 3.4 g/dL (2.4-3.5); Glucose 247 mg/dL (70-105); Potassium 3.8 mmol/L (3.5-5.1); Protein, Total 7.1 g/dL (6.0-8.3); Sodium 141 mmol/L (136-145)
[2021-02-03 16:40] LABS: CKMB 2.4 ng/mL (0-6.6)
[2021-02-03] MEDS ORDERED: Aspirin 325 MG TAB ONE (17:31)
[2021-02-03] MEDS ORDERED: Acetaminophen 500 MG TAB ONE (17:31)
[2021-02-03] MEDS ORDERED: Amlodipine 5 MG TAB ONE (17:31)
[2021-02-03] MEDS ORDERED: Aspirin Chewable 81 MG TAB ONE (17:33)
[2021-02-03] MEDS ORDERED: methylPREDNISolone Sod Succ/PF 125 MG/2 ML VIAL ONE ×2 (17:46→17:49)
[2021-02-03 19:02] LABS: Troponin I 0.046 ng/mL (< 0.028)
[2021-02-03] MEDS ORDERED: Ondansetron PF 4 MG/2 ML Vial IVP PRN (19:37)
[2021-02-03] MEDS ORDERED: HYDROcodone/Acetaminophen 5/325 mg Tablet PO PRN (19:37)
[2021-02-03] MEDS ORDERED: Guaifenesin DM 100-10/5 ML UDCUP PO PRN (19:37)
[2021-02-03] MEDS ORDERED: HYDROcodone/Acetaminophen 7.5/325 mg Tablet PO PRN (19:37)
[2021-02-03] MEDS ORDERED: Senokot S 8.6-50 MG TAB PO PRN (19:37)
[2021-02-03] MEDS ORDERED: Bisacodyl 5 MG TAB PO PRN (19:37)
[2021-02-03] MEDS ORDERED: Enoxaparin Sodium 40 MG/0.4 ML SYRINGE SC SCH (19:45)
[2021-02-03] MEDS ORDERED: Albuterol Sulfate 2.5 mg/3 ml Neb NEB PRN (20:09)
[2021-02-03] MEDS ORDERED: Dextrose 5% in Water 1,000 ML IV PRN (20:14)
[2021-02-03] MEDS ORDERED: Dextrose 50% Abboject 50 ML SYRINGE SLOW IVP PRN (20:14)
[2021-02-03] MEDS ORDERED: hydrALAZINE 20 MG/ML VIAL SLOW IVP PRN (20:26)
[2021-02-03] MEDS ORDERED: Saccharomyces boulardii 250 MG CAP PO SCH (20:30)
[2021-02-03] MEDS ORDERED: Gemfibrozil 600 MG TAB PO SCH (20:30)
[2021-02-03] MEDS ORDERED: Bacteriostatic Water 30 ML VIAL FS PRN (20:45)
[2021-02-03] MEDS ORDERED: Lantus 1000 UNITS/10 ML VIAL SC SCH (21:00)
[2021-02-03] MEDS ORDERED: Furosemide 20 MG/2 ML VIAL SLOW IVP SCH (21:45)
[2021-02-03 22:11] VITALS: BMI 34.4
[2021-02-03 22:24] LABS: Troponin I 0.046 ng/mL (< 0.028)
[2021-02-03] MEDS: Nicotine 21 MG PATCH TD SCH (23:03)
[2021-02-03] MEDS: Famotidine/PF 20 mg/2ml Vial SLOW IVP SCH (23:04)
[2021-02-04 01:29] LABS: Troponin I 0.028 ng/mL (< 0.028)
[2021-02-04] MEDS: methylPREDNISolone Sod Succ 40 MG VIAL IVP SCH ×3 (02:37→17:23)
[2021-02-04] MEDS: HumaLOG 300 UNITS/3 ML VIAL SC PRN ×4 (05:25→21:30)
[2021-02-04 06:51] LABS: #Basophils 0.1 thou/uL (0.0-0.2); #Eosinphils 0.1 thou/uL (0.0-0.7); #Lymphocytes 0.7 thou/uL (1.20-3.40); #Monocytes 0.2 thou/uL (0.11-0.59); %Basophils 0.5 % (0.0-1.0); %Eosinophils 0.7 % (0.0-10.0); %Lymphocytes 7.3 % (21.0-51.0); %Monocytes 1.9 % (0.0-10.0); %Neutrophils 89.7 % (42.0-75.0); Hemoglobin 15.1 g/dL (12.0-16.0); Mean Corpuscular HGB CONC 32.8 g/dL (32.0-36.0); Mean Corpuscular Hemoglobin 31.5 pg (27.0-31.0); Mean Corpuscular Volume 95.9 fL (78.0-98.0); Mean Platelet Volume 8.1 fL (7.4-10.4); Platelet Count 317 thou/uL (130-400); RBC Distribution Width 14.2 % (11.5-14.5); Red Blood Cell (RBC) Count 4.79 mill/uL (4.20-5.40); White Blood Cell (WBC) Count 10.1 thou/uL (4.8-10.8)
[2021-02-04 06:53] LABS: Hemoglobin A1c 10.3 % (4.0-6.0)
[2021-02-04 07:11] LABS: Anion Gap 15 mmol/L (10-20); BUN (Urea Nitrogen) 16 mg/dL (9.8-20.1); Calc. Creatinine Clearance 123 mL/min (70-130); Calcium 9.6 mg/dL (7.8-10.44); Carbon Dioxide 30 mmol/L (22-29); Cardiac Risk 5.2 (Less than 4.5); Chloride 99 mmol/L (98-107); Cholesterol 213 mg/dl (< 200 Desired); Glucose 372 mg/dL (70-105); HDL Cholesterol 41 mg/dL (>60 Neg Risk); LDL Cholesterol, Calculated 149 mg/dL; Potassium 4.2 mmol/L (3.5-5.1); Sodium 140 mmol/L (136-145); Triglycerides 115 mg/dL (Less than 150)
[2021-02-04] MEDS: Saccharomyces boulardii 250 MG CAP PO SCH (09:46)
[2021-02-04] MEDS: Enoxaparin Sodium 40 MG/0.4 ML SYRINGE SC SCH (09:46)
[2021-02-04] MEDS: Amlodipine 10 MG TAB PO SCH (09:46)
[2021-02-04] MEDS: Gemfibrozil 600 MG TAB PO SCH ×2 (09:46→17:23)
[2021-02-04] MEDS: Furosemide 20 MG/2 ML VIAL SLOW IVP SCH (09:47)
[2021-02-04] MEDS: Famotidine/PF 20 mg/2ml Vial SLOW IVP SCH ×2 (09:48→21:26)
[2021-02-04 12:30] LABS: SARS-CoV-2 PCR by NAA Not Detected (NotDetected)
[2021-02-04] MEDS: HumaLOG 300 UNITS/3 ML VIAL SC SCH (17:25)
[2021-02-04] MEDS ORDERED: Lantus 1000 UNITS/10 ML VIAL SC SCH (21:00)
[2021-02-04] MEDS: Doxycycline 100 MG CAP PO SCH (21:25)
[2021-02-04] MEDS: guaiFENesin ER 600 MG TAB PO SCH (21:26)
[2021-02-04] MEDS: Nicotine 21 MG PATCH TD SCH (21:27)
[2021-02-04] MEDS: Acetaminophen 325 MG TAB PO PRN (21:47)
[2021-02-05] MEDS: methylPREDNISolone Sod Succ 40 MG VIAL IVP SCH ×3 (01:47→17:07)
[2021-02-05] MEDS: HumaLOG 300 UNITS/3 ML VIAL SC PRN ×4 (06:30→20:27)
[2021-02-05] MEDS: Gemfibrozil 600 MG TAB PO SCH ×2 (06:30→17:06)
[2021-02-05] MEDS ORDERED: Lantus 1000 UNITS/10 ML VIAL SC SCH ×2 (09:00→21:00)
[2021-02-05] MEDS: Enoxaparin Sodium 40 MG/0.4 ML SYRINGE SC SCH (09:38)
[2021-02-05] MEDS: guaiFENesin ER 600 MG TAB PO SCH ×2 (09:39→20:25)
[2021-02-05] MEDS: Doxycycline 100 MG CAP PO SCH ×2 (09:39→20:25)
[2021-02-05] MEDS: Saccharomyces boulardii 250 MG CAP PO SCH (09:39)
[2021-02-05] MEDS: Amlodipine 10 MG TAB PO SCH (09:39)
[2021-02-05] MEDS: Furosemide 20 MG/2 ML VIAL SLOW IVP SCH (09:39)
[2021-02-05] MEDS: Famotidine/PF 20 mg/2ml Vial SLOW IVP SCH ×2 (09:39→20:25)
[2021-02-05] MEDS: Lantus 1000 UNITS/10 ML VIAL SC SCH (09:43)
[2021-02-05] MEDS: HumaLOG 300 UNITS/3 ML VIAL SC SCH ×3 (09:45→17:07)
[2021-02-05] MEDS: Acetaminophen 325 MG TAB PO PRN (17:20)
[2021-02-05] MEDS: Nicotine 21 MG PATCH TD SCH (20:25)
[2021-02-06] MEDS: methylPREDNISolone Sod Succ 40 MG VIAL IVP SCH ×2 (01:54→08:54)
[2021-02-06 05:03] LABS: #Monocytes 0.5 thou/uL (0.11-0.59); %Basophils 0.1 % (0.0-1.0); %Eosinophils 0.1 % (0.0-10.0); %Lymphocytes 8.3 % (21.0-51.0); %Monocytes 4.3 % (0.0-10.0); %Neutrophils 87.3 % (42.0-75.0); Hemoglobin 14.5 g/dL (12.0-16.0); Mean Corpuscular HGB CONC 30.5 g/dL (32.0-36.0); Mean Corpuscular Volume 98.2 fL (78.0-98.0); Mean Platelet Volume 8.5 fL (7.4-10.4); Platelet Count 372 thou/uL (130-400); RBC Distribution Width 14.3 % (11.5-14.5); Red Blood Cell (RBC) Count 4.85 mill/uL (4.20-5.40); White Blood Cell (WBC) Count 12.6 thou/uL (4.8-10.8)
[2021-02-06 05:18] LABS: Anion Gap 14 mmol/L (10-20); BUN (Urea Nitrogen) 30 mg/dL (9.8-20.1); Calc. Creatinine Clearance 117 mL/min (70-130); Calcium 9.6 mg/dL (7.8-10.44); Carbon Dioxide 32 mmol/L (22-29); Chloride 97 mmol/L (98-107); Glucose 343 mg/dL (70-105); Potassium 4.8 mmol/L (3.5-5.1); Sodium 138 mmol/L (136-145)
[2021-02-06] MEDS: HumaLOG 300 UNITS/3 ML VIAL SC PRN (06:05)
[2021-02-06 07:48] VITALS: BP 138/80; TEMP 98.4
[2021-02-06] MEDS: Famotidine/PF 20 mg/2ml Vial SLOW IVP SCH (08:52)
[2021-02-06] MEDS: Furosemide 20 MG/2 ML VIAL SLOW IVP SCH (08:52)
[2021-02-06] MEDS: Enoxaparin Sodium 40 MG/0.4 ML SYRINGE SC SCH (08:53)
[2021-02-06] MEDS: Doxycycline 100 MG CAP PO SCH (08:53)
[2021-02-06] MEDS: Amlodipine 10 MG TAB PO SCH (08:53)
[2021-02-06] MEDS: Saccharomyces boulardii 250 MG CAP PO SCH (08:53)
[2021-02-06] MEDS: Gemfibrozil 600 MG TAB PO SCH (08:53)
[2021-02-06] MEDS: guaiFENesin ER 600 MG TAB PO SCH (08:53)
[2021-02-06] MEDS: HumaLOG 300 UNITS/3 ML VIAL SC SCH (08:54)
[2021-02-06] MEDS: Lantus 1000 UNITS/10 ML VIAL SC SCH (08:54)
== END 2021-02-06 11:29 | disposition home or self-care (01) | DRG 291 ==
LOC: ERS 15:04 → ERHOLD 17:54 → 2NO 21:23 → OBSVTOIN 02-05 13:52
PROVIDERS: ADMIT Family Medicine; ATTEND Internal Medicine
DX: I11.0 Hypertensive heart disease with heart failure (principal); I50.33 Acute on chronic diastolic (congestive) heart failure; J96.21 Acute and chronic respiratory failure with hypoxia; J44.1 Chronic obstructive pulmonary disease with (acute) exacerbation; Z20.822 Contact with and (suspected) exposure to COVID-19; E78.5 Hyperlipidemia, unspecified; F17.210 Nicotine dependence, cigarettes, uncomplicated; E11.69 Type 2 diabetes mellitus with other specified complication; E11.65 Type 2 diabetes mellitus with hyperglycemia; E66.01 Morbid (severe) obesity due to excess calories; T38.0X5A Adverse effect of glucocorticoids and synthetic analogues, initial encounter; Z88.8 Allergy status to other drugs, medicaments and biological substances; Z99.81 Dependence on supplemental oxygen; Z79.84 Long term (current) use of oral hypoglycemic drugs; Z79.51 Long term (current) use of inhaled steroids; Z79.4 Long term (current) use of insulin; Z79.899 Other long term (current) drug therapy; Z68.34 Body mass index [BMI] 34.0-34.9, adult
CPT/HCPCS: 36415; 36416; 71045; 80048; 80053; 80061; 82553; 83036; 83880; 84484; 85025; 93005; 93306; 94640; 96365; 96372; 96375; 96376; G0378; J0360; J1650; J1815; J1940; J1956; J2920; J2930; J7620; S0028; U0003; U0005

== ENCOUNTER 2021-05-26 13:03 | Emergency (ER) | payer OTHER ==
[~2021-05-26 13:03] MED LIST: Iopamidol 370 76% 100 ML VIAL ONE
[2021-05-26 13:44] LABS: #Eosinphils 0.2 thou/uL (0.0-0.7); #Lymphocytes 1.1 thou/uL (1.20-3.40); #Monocytes 1.1 thou/uL (0.11-0.59); #Neutrophils 6.2 thou/uL (1.40-6.50); %Eosinophils 2.2 % (0.0-10.0); %Lymphocytes 12.7 % (21.0-51.0); %Monocytes 12.4 % (0.0-10.0); %Neutrophils 72.7 % (42.0-75.0); Hemoglobin 15.2 g/dL (12.0-16.0); Mean Corpuscular HGB CONC 32.5 g/dL (32.0-36.0); Mean Corpuscular Hemoglobin 30.9 pg (27.0-31.0); Mean Platelet Volume 7.6 fL (7.4-10.4); Platelet Count 285 thou/uL (130-400); RBC Distribution Width 14.2 % (11.5-14.5); Red Blood Cell (RBC) Count 4.92 mill/uL (4.20-5.40); White Blood Cell (WBC) Count 8.5 thou/uL (4.8-10.8)
[2021-05-26 14:05] LABS: ALT (SGPT) 22 U/L (8-55); AST (SGOT) 23 U/L (5-34); Albumin 3.9 g/dL (3.5-5.0); Alkaline Phosphatase 105 U/L (40-110); Anion Gap 13 mmol/L (10-20); BUN (Urea Nitrogen) 16 mg/dL (9.8-20.1); Bilirubin, Total 0.3 mg/dL (0.2-1.2); Calc. Creatinine Clearance 0 mL/min (70-130); Calcium 9.6 mg/dL (7.8-10.44); Carbon Dioxide 28 mmol/L (22-29); Chloride 100 mmol/L (98-107); Glucose 154 mg/dL (70-105); Lipase 18 U/L (8-78); Potassium 4.1 mmol/L (3.5-5.1); Protein, Total 6.9 g/dL (6.0-8.3); Sodium 137 mmol/L (136-145)
[2021-05-26] MEDS ORDERED: Ondansetron PF 4 MG/2 ML Vial ONE (14:48)
[2021-05-26] MEDS ORDERED: Morphine 4 MG/ML VIAL ONE (14:48)
[2021-05-26 15:13] LABS: Bilirubin Negative (Negative); Blood, Urine Negative (Negative); Clarity Clear (Clear); Glucose, Urine (Dipstick) Normal (Negative); Ketone, Urine Negative (Negative); Leukocyte Negative Leu/uL (Negative); Nitrite Negative (Negative); Protein, Urine (Dipstick) 20 mg/dL (Neg-Trace); Specific Gravity, Urine 1.023 (1.002-1.036); Urobilinogen Normal mg/dL (Less than 2); pH, Urine 5.5 (5.0-9.0)
== END 2021-05-26 16:03 | disposition home or self-care (01) ==
LOC: ERS 13:03
DX: R10.32 Left lower quadrant pain (principal); E11.9 Type 2 diabetes mellitus without complications; I10 Essential (primary) hypertension; J44.9 Chronic obstructive pulmonary disease, unspecified; F17.210 Nicotine dependence, cigarettes, uncomplicated
CPT/HCPCS: 36415; 74177; 80053; 81003; 83690; 85025; 96374; 96375; J2270; J2405

== ENCOUNTER 2021-09-30 10:27 | Outpatient (CLI) | payer OTHER | END 2021-09-30 10:28 | disposition home or self-care (01) | LOC: BICRAD 10:27 | PROVIDERS: ATTEND Nurse Practitioner Family | DX: M54.50 Low back pain, unspecified (principal); M47.816 Spondylosis without myelopathy or radiculopathy, lumbar region | CPT/HCPCS: 72100 ==